=== PATIENT | female | born 2000 | race Caucasian/White ===

== ENCOUNTER 2023-09-12 20:57 | Emergency (ER) | payer OTHER ==
[~2023-09-12] VITALS: Ht 167.6 cm; Wt 74.3 kg
[2023-09-12 21:21] VITALS: BP 131/80; PULSE 138; RESP 16; TEMP 98.9; O2SAT 100
== END 2023-09-13 00:41 | disposition left against medical advice (07) ==
LOC: ER 20:57
DX: H92.02 Otalgia, left ear (principal); R51.9 Headache, unspecified; I49.9 Cardiac arrhythmia, unspecified
CPT/HCPCS: 93005; 99281